=== PATIENT | female | born 1995 | race Caucasian/White ===

== ENCOUNTER 2023-09-29 04:43 | Inpatient (IN) | payer OTHER ==
[2023-09-29 05:41] LABS: Hematocrit 39.4 % (34.9-44.5); Hemoglobin 13.6 g/dL (12.0-15.5); Mean Corpuscular HGB CONC 34.5 g/dL (32.0-36.0); Mean Corpuscular Hemoglobin 29.1 pg (27.0-33.0); Mean Corpuscular Volume 84.4 fl (81.6-98.3); Mean Platelet Volume 13.8 fl (7.4-10.4); Platelet Count 133 10x3/uL (150-450); RBC Distribution Width 12.8 % (11.5-14.5); Red Blood Cell (RBC) Count 4.67 10x6/uL (3.90-5.03); White Blood Cell (WBC) Count 12.3 10x3/uL (3.5-10.5)
[2023-09-29 05:59] VITALS: BMI 25.8
[2023-09-29] MEDS ORDERED: Promethazine HCl 25 MG/ML VIAL IM PRN ×2 (05:59→07:45)
[2023-09-29] MEDS ORDERED: fentaNYL 50 mcg/mL 1 mL Vial SLOW IVP PRN (05:59)
[2023-09-29] MEDS ORDERED: Moisturizing Cream (Eucerin) 113 GM JAR TOP PRN (05:59)
[2023-09-29] MEDS ORDERED: Naloxone HCl 0.4 mg/ml Vial IVP PRN ×2 (05:59)
[2023-09-29] MEDS ORDERED: Ondansetron PF 4 MG/2 ML Vial IVP PRN ×3 (05:59→07:45)
[2023-09-29] MEDS ORDERED: Promethazine HCl 25 MG SUPP PR PRN (05:59)
[2023-09-29] MEDS ORDERED: Meperidine HCl/PF 25 MG (1 mL) VIAL SLOW IVP PRN (05:59)
[2023-09-29] MEDS ORDERED: Communication Order-Pharmacy FS SCH (06:00)
[2023-09-29 06:10] LABS: HBSAg Index 0.18 S/CO (0-0.99); Hep B Surf Ag - L&D Non-Reactive S/CO (NonReactive)
[2023-09-29 06:12] LABS: Syphilis Antibody Nonreactive (Nonreactive); Syphilis Antibody Index 0.05 S/CO (<1.00 Non-Reactive)
[2023-09-29] MEDS ORDERED: Bicitra 30 ML UDCUP PO SCH (06:45)
[2023-09-29] MEDS ORDERED: CEFAZOLIN 2 GM in Sodium Chloride 0.9% 100 ML IVPB SCH (06:45)
[2023-09-29] MEDS ORDERED: Carboprost 250 MCG/ML AMP IM PRN (07:45)
[2023-09-29] MEDS ORDERED: hydrALAZINE 20 MG/ML VIAL SLOW IVP PRN ×2 (07:45→11:19)
[2023-09-29] MEDS ORDERED: Acetaminophen 500 MG TAB PO PRN (07:45)
[2023-09-29] MEDS ORDERED: Methylergonovine 0.2 MG/ML VIAL IM PRN (07:45)
[2023-09-29] MEDS ORDERED: Misoprostol 200 MCG TAB RC PRN (07:45)
[2023-09-29] MEDS ORDERED: Oxytocin 30 units/NS 500 ML 500 ML IVPB SCH (07:45)
[2023-09-29] MEDS ORDERED: Tranexamic Acid 1,000 MG/10 ML VIAL IVP PRN (07:51)
[2023-09-29] MEDS ORDERED: Famotidine/PF 20 mg/2ml Vial SLOW IVP PRN (08:12)
[2023-09-29] MEDS: diphenhydrAMINE 50 MG/ML VIAL IVP PRN (10:18)
[2023-09-29] MEDS: Naloxone HCl 0.4 mg/ml Vial IV PRN (10:44)
[2023-09-29] MEDS ORDERED: diphenhydrAMINE 25 MG CAP PO PRN (11:19)
[2023-09-29] MEDS ORDERED: Simethicone Chewable 80 MG TAB PO PRN (11:19)
[2023-09-29] MEDS ORDERED: Bisacodyl 10 MG SUPP PR PRN (11:19)
[2023-09-29] MEDS ORDERED: Lanolin Ointment 7 GM TUBE TOP PRN (11:19)
[2023-09-29] MEDS: CEFAZOLIN 2 GM VIAL ONE (11:39)
[2023-09-29] MEDS: Dexamethasone 4 mg/ml Vial ONE ×2 (11:40)
[2023-09-29] MEDS: ePHEDrine Sulfate 50 MG/10 ML VIAL ONE (11:40)
[2023-09-29] MEDS: Glycopyrrolate 0.2 MG/ML 5 ML SYRINGE ONE (11:40)
[2023-09-29] MEDS: Ketorolac Tromethamine 30 MG (1 mL) VIAL ONE (11:54)
[2023-09-29] MEDS: Ondansetron PF 4 MG/2 ML Vial ONE ×2 (11:54)
[2023-09-29] MEDS: Oxytocin 10 UNITS/ML VIAL ONE (11:55)
[2023-09-29] MEDS: Phenylephrine 40 MG/NS 250 ML 250 ML ONE (11:55)
[2023-09-29] MEDS: Ketorolac Tromethamine 30 MG (1 mL) VIAL IVP SCH (11:56)
[2023-09-29] MEDS: Morphine PF 10 MG/10 ML VIAL ONE (11:56)
[2023-09-29] MEDS: Lactated Ringer's 1,000 ML IV SCH (11:56)
[2023-09-29] MEDS: PHENYLEPHRINE-NS 100 MCG/ML 10 ML SYRINGE ONE (11:56)
[2023-09-29] MEDS: Prenatal Vitamin 1 TAB PO SCH (11:57)
[2023-09-29] MEDS: Boostrix 0.5 ML (Tdap) VIAL (>/=7 yrs of age) IM ONE (11:57)
[2023-09-29] MEDS: Docusate 100 MG CAP PO SCH ×2 (11:57→20:12)
[2023-09-29] MEDS: Ketorolac Tromethamine 30 MG (1 mL) VIAL IVP PRN (13:21)
[2023-09-29] MEDS ORDERED: HYDROcodone/Acetaminophen 5/325 mg Tablet PO PRN (18:00)
[2023-09-30 04:10] LABS: Hematocrit 30.5 % (34.9-44.5); Hemoglobin 10.6 g/dL (12.0-15.5); Mean Corpuscular HGB CONC 34.8 g/dL (32.0-36.0); Mean Corpuscular Hemoglobin 30.2 pg (27.0-33.0); Mean Corpuscular Volume 86.9 fl (81.6-98.3); Mean Platelet Volume 13.8 fl (7.4-10.4); Platelet Count 118 10x3/uL (150-450); RBC Distribution Width 12.7 % (11.5-14.5); Red Blood Cell (RBC) Count 3.51 10x6/uL (3.90-5.03); White Blood Cell (WBC) Count 16.1 10x3/uL (3.5-10.5)
[2023-09-30] MEDS: Prenatal Vitamin 1 TAB PO SCH (07:37)
[2023-09-30] MEDS: HYDROcodone/Acetaminophen 5/325 mg Tablet PO PRN (07:41)
[2023-09-30] MEDS: Ibuprofen 800 MG TAB PO SCH (13:16)
[2023-09-30] MEDS: Acetaminophen 325 MG TAB PO PRN (21:35)
[2023-10-01 07:37] VITALS: BP 136/88; TEMP 98.6
== END 2023-10-01 14:10 | disposition home or self-care (01) | DRG 788 ==
LOC: CSHLD/OP 04:43 → CSHLD 05:49 → CSHPP 11:17
PROVIDERS: ADMIT Obstetrics & Gynecology; ATTEND Obstetrics & Gynecology
PROC: 10D00Z1 Extraction of Products of Conception, Low, Open Approach (ICD-10-PCS; principal; 2023-09-29)
DX: O32.1XX0 Maternal care for breech presentation, not applicable or unspecified (principal); Z3A.38 38 weeks gestation of pregnancy; Z37.0 Single live birth
CPT/HCPCS: 36415; 51702; 85027; 86780; 86850; 86900; 86901; 87340; 99285; J1100; J1200; J1885; J2274; J2310; J2405; J2590